=== PATIENT | female | born 2000 | race Caucasian/White ===

== ENCOUNTER 2022-05-23 07:21 | Day surgery (SDC) | payer MEDICAID ==
[~2022-05-23] VITALS: Ht 165.1 cm; Wt 58.2 kg
[~2022-05-23 07:21] MED LIST: SODIUM CHLORIDE 0.9% 1,000 ML IV ONE; SODIUM CHLORIDE 0.9% 1,000 ML ONE
[2022-05-23] MEDS ORDERED: PROPOFOL 1% 20 ML VIAL IVP ONE (07:22)
[2022-05-23 07:44] LABS: COVID AG,FIA SOURCE NASOPHARYNGEAL
[2022-05-23] MEDS ORDERED: OXYGEN THERAPY IH SCH (20:00)
== END 2022-05-23 10:55 | disposition home or self-care (01) ==
LOC: SURGERY 07:21
PROVIDERS: ATTEND Specialist
DX: R11.2 Nausea with vomiting, unspecified (principal); R19.7 Diarrhea, unspecified; Z79.899 Other long term (current) drug therapy; Z98.890 Other specified postprocedural states
CPT/HCPCS: 43239; 84703; 87426; C1769; C9803; J2704; J7030; 88305; 88312; 88313